=== PATIENT | female | born 1965 | race Caucasian/White ===

== ENCOUNTER → 2018-01-20 | Outpatient (CLI) | payer BC, OTHER | LOC: LAB 16:08 | PROVIDERS: ATTEND Podiatrist Foot & Ankle Surgery | DX: B35.1 Tinea unguium (principal) | CPT/HCPCS: 36415; 82040; 82247; 82248; 84075; 84155; 84450; 84460 ==

== ENCOUNTER → 2018-03-03 | Outpatient (CLI) | payer BC, OTHER | LOC: LAB 11:11 | PROVIDERS: ATTEND Podiatrist Foot & Ankle Surgery | DX: B35.1 Tinea unguium (principal) | CPT/HCPCS: 36415; 82040; 82247; 82248; 84075; 84155; 84450; 84460 ==

== ENCOUNTER → 2018-03-10 | Outpatient (CLI) | payer BC, OTHER | LOC: LAB 08:05 | PROVIDERS: ATTEND Podiatrist Foot & Ankle Surgery | DX: B35.1 Tinea unguium (principal) | CPT/HCPCS: 36415; 82040; 82247; 82248; 84075; 84155; 84450; 84460 ==

== ENCOUNTER → 2018-03-31 | Outpatient (CLI) | payer BC, OTHER | LOC: LAB 07:40 | PROVIDERS: ATTEND Podiatrist Foot & Ankle Surgery | DX: B35.1 Tinea unguium (principal) | CPT/HCPCS: 36415; 82040; 82247; 82248; 84075; 84155; 84450; 84460 ==

== ENCOUNTER 2018-05-07 11:38 | Emergency (ER) | payer BC, OTHER ==
--- NOTE | 2018-05-07 11:41 | ER Report ---
History and Physical Time Seen By MD: 11:41 HPI/ROS CHIEF COMPLAINT: Right lower quadrant abdominal pain, nausea HISTORY OF PRESENT ILLNESS: Patient is a 52-year-old female here with complaints of right lower quadrant abdominal pain, sharp, stabbing, nausea. Pain has not migrated, patient is afebrile and hemodynamically stable. She does report having a prior history of a hysterectomy, cholecystectomy. Patient denies hematuria, burning with urination, flank pain, diarrhea, blood in the stools. Patient was sent in from clinic after reporting persistent symptoms. REVIEW OF SYSTEMS: Constitutional: No fever, no chills. Eyes: No discharge. ENT: No sore throat. Cardiovascular: No chest pain, no palpitations. Respiratory: No cough, no shortness of breath. Gastrointestinal: Right lower quadrant abdominal pain, no vomiting,+ nausea. Genitourinary: No hematuria, burning with urination or frequency Musculoskeletal: No back pain. Skin: No rashes. Neurological: No headache. Allergies: Coded Allergies: naproxen (Verified Allergy, Unknown, NAUSEA/VOMITING, 05/07/18) acetaminophen (Verified Adverse Reaction, Unknown, HALLUCINATIONS, 05/07/18) wipes me out oxycodone (Verified Adverse Reaction, Unknown, HALLUCINATIONS, 05/07/18) wipes me out Home Meds No Active Prescriptions or Reported Meds Constitutional Vital Sign - Last 24 Hours 05/07/18 05/07/18 05/07/18 05/07/18 11:38 11:46 11:53 12:00 Temp 99.1 Pulse 88 83 Resp 12 B/P (MAP) 116/75 116/75 (89) 117/68 (84) Pulse Ox 95 96 O2 Delivery Room Air Room Air 05/07/18 05/07/18 05/07/18 05/07/18 12:08 12:30 12:38 12:43 Pulse 78 67 62 B/P (MAP) 118/69 (85) Pulse Ox 82 98 99 O2 Delivery Room Air Nasal Cannula Nasal Cannula O2 Flow Rate 2 2 05/07/18 05/07/18 05/07/18 05/07/18 13:00 13:13 13:30 13:43 Pulse 78 76 B/P (MAP) 115/68 (84) 107/66 (80) Pulse Ox 100 99 O2 Delivery Nasal Cannula Nasal Cannula O2 Flow Rate 2 2 05/07/18 05/07/18 05/07/18 05/07/18 13:48 14:00 14:18 14:30 Pulse 78 83 B/P (MAP) 113/68 (83) 101/60 (74) Pulse Ox 98 98 O2 Delivery Nasal Cannula Nasal Cannula O2 Flow Rate 2 2 Physical Exam General Appearance: The patient is alert, has no immediate need for airway protection and no signs of toxicity. Mild distress secondary to pain. Eyes: Pupils equal and round no pallor or injection. ENT, Mouth: Mucous membranes are moist. Respiratory: There are no retractions, lungs are clear to auscultation. Cardiovascular: Regular rate and rhythm. Gastrointestinal: Abdomen is soft and + tender on palpation on the right lower quadrant, no masses, bowel sounds normal. No rebound or guarding elicited on exam Neurological: No focal neurological deficits Skin: Warm and dry, no rashes. Musculoskeletal: Neck is supple non tender. Extremities are nontender, nonswollen and have full range of motion. DIFFERENTIAL DIAGNOSIS: After history and physical exam differential diagnosis was considered for abdominal pain including but not limited to appendicitis, cholecystitis, gastritis and urinary tract infection. Medical Decision Making Data Points Result Diagram: 05/07/18 1213 05/07/18 1213 Laboratory Hematology Test 05/07/18 11:51 05/07/18 12:13 Urine Color Yellow Urine Clarity Clear Urine pH 7.0 pH (4.8-9.5) Urine Specific Roscoe 1.008 Urine Protein Negative mg/dL (NEGATIVE) Urine Glucose (UA) Negative mg/dL (NEGATIVE) Urine Ketones Negative mg/dL (NEGATIVE) Urine Blood Negative (NEGATIVE) Urine Nitrite Negative (NEGATIVE) Urine Bilirubin Negative (NEGATIVE) Urine Urobilinogen Negative mg/dL (0.2-1.9) Urine Leukocyte Esterase Negative (NEGATIVE) Urine RBC 1 /HPF (0-2/HPF) Urine WBC <1 /HPF (0-5/HPF) Urine Squamous Epithelial Cells Many /LPF (</=FEW) Urine Bacteria Negative /HPF (NONE-FEW) Urine Mucus None /HPF (NONE-FEW) Red Blood Count 4.34 M/uL (4.17-5.56) Mean Corpuscular Volume 90.7 fL (80.0-96.0) Mean Corpuscular Hemoglobin 30.2 pg (26.0-33.0) Mean Corpuscular Hemoglobin Concent 33.4 g/dL (32.0-36.0) Red Cell Distribution Width 13.8 % (11.5-14.5) Mean Platelet Volume 8.3 fL (7.2-11.1) Neutrophils (%) (Auto) 57.6 % (39.4-72.5) Lymphocytes (%) (Auto) 30.9 % (17.6-49.6) Monocytes (%) (Auto) 9.7 % (4.1-12.4) Eosinophils (%) (Auto) 0.9 % (0.4-6.7) Basophils (%) (Auto) 0.9 % (0.3-1.4) Nucleated RBC Relative Count (auto) 0.0 /100WBC Neutrophils # (Auto) 3.2 K/uL (2.0-7.4) Lymphocytes # (Auto) 1.7 K/uL (1.3-3.6) Monocytes # (Auto) 0.5 K/uL (0.3-1.0) Eosinophils # (Auto) 0.0 K/uL (0.0-0.5) Basophils # (Auto) 0.1 K/uL (0.0-0.1) Nucleated RBC Absolute Count (auto) 0.00 K/uL Sodium Level 141 mmol/L (137-145) Potassium Level 3.7 mmol/L (3.5-5.0) Chloride Level 105 mmol/L (98-107) Carbon Dioxide Level 28 mmol/L (22-31) Blood Urea Nitrogen 7 mg/dl (7-18) Creatinine 0.60 mg/dl (0.52-1.04) Glomerular Filtration Rate Calc > 60.0 Random Glucose 100 mg/dl (75-110) Calcium Level 8.3 mg/dl (8.4-10.2) Total Bilirubin 0.4 mg/dl (0.2-1.3) Aspartate Amino Transf (AST/SGOT) 33 U/L (0-35) Alanine Aminotransferase (ALT/SGPT) 63 U/L (0-56) Alkaline Phosphatase 98 U/L (0-126) C-Reactive Protein < 0.5 mg/dl (<1.0) Total Protein 6.2 g/dl (6.3-8.2) Albumin 3.5 g/dl (3.5-5.0) Lipase 50 U/L (23-300) Chemistry Test 05/07/18 11:51 05/07/18 12:13 Urine Color Yellow Urine Clarity Clear Urine pH 7.0 pH (4.8-9.5) Urine Specific Roscoe 1.008 Urine Protein Negative mg/dL (NEGATIVE) Urine Glucose (UA) Negative mg/dL (NEGATIVE) Urine Ketones Negative mg/dL (NEGATIVE) Urine Blood Negative (NEGATIVE) Urine Nitrite Negative (NEGATIVE) Urine Bilirubin Negative (NEGATIVE) Urine Urobilinogen Negative mg/dL (0.2-1.9) Urine Leukocyte Esterase Negative (NEGATIVE) Urine RBC 1 /HPF (0-2/HPF) Urine WBC <1 /HPF (0-5/HPF) Urine Squamous Epithelial Cells Many /LPF (</=FEW) Urine Bacteria Negative /HPF (NONE-FEW) Urine Mucus None /HPF (NONE-FEW) White Blood Count 5.6 k/uL (4.5-11.0) Red Blood Count 4.34 M/uL (4.17-5.56) Hemoglobin 13.1 g/dL (12.0-16.0) Hematocrit 39.3 % (34.0-47.0) Mean Corpuscular Volume 90.7 fL (80.0-96.0) Mean Corpuscular Hemoglobin 30.2 pg (26.0-33.0) Mean Corpuscular Hemoglobin Concent 33.4 g/dL (32.0-36.0) Red Cell Distribution Width 13.8 % (11.5-14.5) Platelet Count 269 K/uL (150-450) Mean Platelet Volume 8.3 fL (7.2-11.1) Neutrophils (%) (Auto) 57.6 % (39.4-72.5) Lymphocytes (%) (Auto) 30.9 % (17.6-49.6) Monocytes (%) (Auto) 9.7 % (4.1-12.4) Eosinophils (%) (Auto) 0.9 % (0.4-6.7) Basophils (%) (Auto) 0.9 % (0.3-1.4) Nucleated RBC Relative Count (auto) 0.0 /100WBC Neutrophils # (Auto) 3.2 K/uL (2.0-7.4) Lymphocytes # (Auto) 1.7 K/uL (1.3-3.6) Monocytes # (Auto) 0.5 K/uL (0.3-1.0) Eosinophils # (Auto) 0.0 K/uL (0.0-0.5) Basophils # (Auto) 0.1 K/uL (0.0-0.1) Nucleated RBC Absolute Count (auto) 0.00 K/uL Glomerular Filtration Rate Calc > 60.0 Calcium Level 8.3 mg/dl (8.4-10.2) Total Bilirubin 0.4 mg/dl (0.2-1.3) Aspartate Amino Transf (AST/SGOT) 33 U/L (0-35) Alanine Aminotransferase (ALT/SGPT) 63 U/L (0-56) Alkaline Phosphatase 98 U/L (0-126) C-Reactive Protein < 0.5 mg/dl (<1.0) Total Protein 6.2 g/dl (6.3-8.2) Albumin 3.5 g/dl (3.5-5.0) Lipase 50 U/L (23-300) Urinalysis Test 05/07/18 11:51 Urine Color Yellow Urine Clarity Clear Urine pH 7.0 pH (4.8-9.5) Urine Specific Roscoe 1.008 Urine Protein Negative mg/dL (NEGATIVE) Urine Glucose (UA) Negative mg/dL (NEGATIVE) Urine Ketones Negative mg/dL (NEGATIVE) Urine Blood Negative (NEGATIVE) Urine Nitrite Negative (NEGATIVE) Urine Bilirubin Negative (NEGATIVE) Urine Urobilinogen Negative mg/dL (0.2-1.9) Urine Leukocyte Esterase Negative (NEGATIVE) Urine RBC 1 /HPF (0-2/HPF) Urine WBC <1 /HPF (0-5/HPF) Urine Squamous Epithelial Cells Many /LPF (</=FEW) Urine Bacteria Negative /HPF (NONE-FEW) Urine Mucus None /HPF (NONE-FEW) EKG/Imaging Imaging Location: [facility] Patient: María Gonsalez : 1965 Visit/Account:[id number] Date of Sevice: 05/07/2018 CT abdomen with IV contrast CT pelvis with IV contrast History: Right lower quadrant abdominal pain. COMPARISON STUDIES: none. TECHNIQUE: Axial CT images were obtained through the abdomen and pelvis during injection of nonionic iodinated intravenous contrast. Reformatted coronal and sagittal images were also obtained. Contrast: 75 ml of Isovue-370 IV contrast. One of the following dose optimization techniques was utilized in the performance of this exam: Automated exposure control; adjustment of the mA and/or kV according to the patient's size; or use of an iterative reconstruction technique. Specific details can be referenced in the facility's radiology CT exam operational policy. FINDINGS: Chest bases: Negative Liver: Normal. Gallbladder and bile ducts: Cholecystectomy. Generous extrahepatic bile ducts. Slight distention of the intrahepatic bile ducts. Spleen: size is normal. Pancreas: negative Adrenal glands: negative Kidneys: Left kidney upper pole benign-appearing cortical cysts, the largest measuring 8mm. Pelvic structures: Partial hysterectomy with cervical stump. A mild amount of fluid and a few gas collections are observed within the vagina and vaginal fornices. Right ovary contains a few small cysts, and is located adjacent to the psoas muscle and iliac vessels in the mid pelvis, image 88.. Left ovary is unremarkable. Bowel and mesenteries: Normal appendix in the right lower abdominal quadrant. Small bowel and colon are normal wall thickness and are not distended. Ascites: None Vessels: negative Musculoskeletal: Negative Body wall: negative Lymph node assessment: negative IMPRESSION: Right ovarian cysts or follicles are identified in the mid pelvis area. If patient is postmenopausal, then I recommend transabdominal and transvaginal ultrasound for further assessment. ED Course/Re-evaluation ED Course Patient is a 52-year-old female here with complaints of right lower quadrant abdominal pain, nausea. Labs were found to be unremarkable with no leukocytosis or signs of infection on urinalysis. CT imaging showed no appendicitis however there were pelvic cyst presents which recommended ultrasound imaging. Ultrasound imaging was inconclusive patient was advised to follow-up with [facility] outpatient for further evaluation. Patient was given Zofran prescription for outpatient treatment. Decision to Disposition Date: May 07, 2018 Decision to Disposition Time: 15:23 Depart Departure Latest Vital Signs Vital Signs Date Time Temp Pulse Resp B/P (MAP) Pulse Ox O2 Delivery O2 Flow Rate FiO2 05/07/18 14:30 101/60 (74) 05/07/18 14:18 83 98 Nasal Cannula 2 05/07/18 11:46 99.1 12 Impression: Primary Impression: Abdominal pain Condition: Improved Disposition: HOME OR SELF-CARE Referrals: [facility] (PCP) New Scripts Ondansetron (ZOFRAN ODT) 4 Mg Tab.rapdis 4 MG PO Q6H PRN for NAUSEA/VOMITING, #20 TAB.KATE 0 Refills Prov: TONY HARDING DO 05/07/18 Patient Instructions: Acute Abdominal Pain (GEN) Additional Instructions: Please follow-up with your family doctor in the next week and with OB/ gynecology for further evaluation of pelvic pain. You may take 1 tablet of Zofran every 6-8 hours as needed for nausea and vomiting. Please drink plenty of water. Please return promptly if you develop worsening pain, nausea, vomiting, fevers or chills. TONY HARDING DO May 07, 2018 11:41
[2018-05-07] MEDS ORDERED: NS(*) 0.9% 1000 ML BAG 1,000 ML IV ONE (11:47)
[2018-05-07] MEDS ORDERED: fentaNYL CITR 100 MCG/2 ML AMP IVP ONE (11:50)
[2018-05-07] MEDS ORDERED: ONDANSETRON 4 MG/2 ML VIAL IVP ONE (11:50)
[2018-05-07 12:27] LABS: PLATELET COUNT, AUTOMATED 269 K/uL (150-450)
[2018-05-07] MEDS ORDERED: IOPAMIDOL 76% 75 ML INFUS BTL 75 ML ONE (12:32)
[2018-05-07] MEDS ORDERED: HYDROMORPHONE HCL 1 MG/ML SYRINGE IVP ONE (13:15)
--- NOTE | 2018-05-07 13:37 | RADIOLOGY IMAGING REPORT ---
FACILITY: [facility] PATIENT NAME: María Gonsalez : 1965 MR: [id number] V: [id number] EXAM DATE: ORDERING PHYSICIAN: TONY HARDING TECHNOLOGIST: Location: [facility] Patient: María Gonsalez : 1965 Visit/Account:[id number] Date of Sevice: 05/07/2018 CT abdomen with IV contrast CT pelvis with IV contrast History: Right lower quadrant abdominal pain. COMPARISON STUDIES: none. TECHNIQUE: Axial CT images were obtained through the abdomen and pelvis during injection of nonioni c iodinated intravenous contrast. Reformatted coronal and sagittal images were also obtained. Contrast: 75 ml of Isovue-370 IV contrast. One of the following dose optimization techniques was utilized in the performance of this exam: Autom ated exposure control; adjustment of the mA and/or kV according to the patient's size; or use of an i terative reconstruction technique. Specific details can be referenced in the facility's radiology C T exam operational policy. FINDINGS: Chest bases: Negative Liver: Normal. Gallbladder and bile ducts: Cholecystectomy. Generous extrahepatic bile ducts. Slight distention o f the intrahepatic bile ducts. Spleen: size is normal. Pancreas: negative Adrenal glands: negative Kidneys: Left kidney upper pole benign-appearing cortical cysts, the largest measuring 8mm. Pelvic structures: Partial hysterectomy with cervical stump. A mild amount of fluid and a few ga s collections are observed within the vagina and vaginal fornices. Right ovary contains a few small cysts, and is located adjacent to the psoas muscle and iliac vessels in the mid pelvis, image 88.. L eft ovary is unremarkable. Bowel and mesenteries: Normal appendix in the right lower abdominal quadrant. Small bowel and colon are normal wall thickness and are not distended. Ascites: None Vessels: negative Musculoskeletal: Negative Body wall: negative Lymph node assessment: negative IMPRESSION: Right ovarian cysts or follicles are identified in the mid pelvis area. If patient is postmenopausal , then I recommend transabdominal and transvaginal ultrasound for further assessment. Report Dictated By: Lisbet Mary MD at 05/07/2018 1:24 PM Report E-Signed By: Lisbet Mary MD at 05/07/2018 1:33 PM [email or web address]
[2018-05-07] MEDS ORDERED: METOCLOPRAMIDE 10 MG/2 ML SDV IVP ONE (14:30)
[2018-05-07 15:00] VITALS: BP 95/57
--- NOTE | 2018-05-07 15:20 | RADIOLOGY IMAGING REPORT ---
FACILITY: [facility] PATIENT NAME: María Gonsalez : 1965 MR: [id number] V: [id number] EXAM DATE: ORDERING PHYSICIAN: TONY HARDING TECHNOLOGIST: Location: [facility] Patient: María Gonsalez : 1965 Visit/Account:[id number] Date of Sevice: 05/07/2018 Transvaginal pelvic ultrasound INDICATION: Right lower quadrant pain COMPARISON: CT examination from May 07, 2018 FINDINGS: The uterus has been surgically removed. A small amount of simple appearing fluid is seen in the endo cervical canal. No mass or fluid collection in the pelvis. The ovarian tissue is obscured on this e xamination secondary to bowel gas. Given the location of the right ovarian tissue and cystic lesions of concern, it is not surprising this region is obscured by bowel gas given its high location at the pelvic inlet and the anterior bowel seen on the CT scan. IMPRESSION: 1. No evidence of acute pathology. 2. The ovarian tissue is not visualized. Please see above discussion. Report Dictated By: Paddy Bhakta MD at 05/07/2018 3:11 PM Report E-Signed By: Paddy Bhakta MD at 05/07/2018 3:16 PM [id number]:[email or web address]
[2018-05-07] MEDS ORDERED: ONDA4TAB PO (15:21)
== END 2018-05-07 15:39 | disposition home or self-care (01) ==
LOC: ER 11:45
DX: R10.31 Right lower quadrant pain (principal)
CPT/HCPCS: 36415; 74177; 76830; 76856; 81001; 83690; 85025; 86140; 96361; 96374; 96375; 99284; J1170; J2405; J2765; J3010; J7030; Q9967; 82040; 82247; 82310; 82374; 82435; 82565; 82947; 84075; 84132; 84155; 84295; 84450; 84460; 84520